=== PATIENT | male | born 1995 | race Caucasian/White ===

== ENCOUNTER 2024-06-13 18:34 | Emergency (ER) | payer MEDICAID, SELFPAY ==
[2024-06-13 18:39] VITALS: BP 140/85
--- NOTE | 2024-06-13 19:45 | ED.GENMED ---
History of Present Illness
General
Chief Complaint: Ear Problem
Source: patient
Exam Limitations: none
Time Seen by Provider: 06/13/24 19:08
Nursing documentation reviewed up to this point in time: agreed with
History of Present Illness
History of Present Illness:
29-year-old male presents to the emergency room for evaluation of left ear discomfort. Patient had an ear wick done to his left ear for excess cerumen. He says that some of the hot wax dripped into his ear and is causing him pain and some muffled
hearing�he says that symptoms were worse earlier in the day when it first happened and that they have generally improved but he still feels some discomfort. He denies any other complaints.
Review of Systems
Review of Systems
All Other Systems: ROS reviewed and negative except as documented in HPI and ROS
EENT: Reports other (Pain and muffled hearing left ear)
Phy Exam
Physical Exam
Physical Exam:
General: Well appearing and non-toxic
HEENT: protecting airway; right TM clear, canal clear; left ear canal small bit of wax abutting tympanic membrane, tympanic membrane is erythematous, bulging but no perforation noted
Neck: appears supple
CV: No evidence of cyanosis
Resp: No accessory muscle use
Abd: Non-distended
Extremities: No deformities
Neuro: Alert
Psych: Normal affect
Skin: Intact
Scores
Heart Failure Risk
Heart Failure Risk Score: Not Applicable
Heart Score for Chest Pain Patients
STEMI patient?: Not applicable
Withdrawal Assessment of Alcohol
Withdrawal Assessment Completed?: Not applicable
Course
Vital Signs
Initial and Last Documented VS:
Initial Vital Signs
Temp Pulse Resp BP Pulse Ox
36.6 C 63 20 140/85 98
06/13/24 18:39 06/13/24 18:39 06/13/24 18:39 06/13/24 18:39 06/13/24 18:39
Last Documented Vital Signs
Temp Pulse Resp BP Pulse Ox
36.6 C 63 20 140/85 98
06/13/24 18:39 06/13/24 18:39 06/13/24 18:39 06/13/24 18:39 06/13/24 18:39
MDM/Problems Addressed
Differential Diagnosis Includes:
[place] media, thermal burn
MDM/Problems Addressed:
29-year-old male presents with left ear discomfort and muffled hearing after hot wax from ear wick went into his ear. Vitals and exam as above. Suspect a thermal burn of the tympanic membrane. Advised NSAIDs, start on antibiotics, follow-up with
ENT. All questions answered.
*Pulse Oximetry
Patient hypoxic: no
*Critical Care Note
Total Time (30-74mins, 75-104mins- exclusive of procedures): Not Applicable
Data Reviewed
Source: patient
ED Attending Note
-
Portions of this chart may have been created with voice recognition software.� Occasional wrong word or��sound alike� substitutions may have occurred due to the inherent limitations of voice recognition software.
Discharge Plan
Departure
Patient Disposition: Home (Routine Discharge)
Date of Disposition: 06/13/24
Time of Disposition: 19:44
Patient with high blood pressure during this ER visit?: No
Discharge Problem:
Tympanic membrane inflammation
Instructions: Fluid in the Ear ED
Prescriptions:
New
cefdinir 300 mg capsule
300 mg PO BID Qty: 14 0RF
Referrals:
NONE,* [Family Provider] -
Jacques Stinson MD [Active] - Call in 1-3 days for appt (ENT)
Activity Restrictions/Additional Instructions:
Thank you for visiting the Emergency Department at [facility].
1. Please schedule a follow up appointment as directed. Call first thing tomorrow morning to make an appointment.
2. If indicated, please take your medications as instructed and indicated on discharge paperwork.
3. If any of your symptoms do not improve, or persist, or become more severe within 6-12 hours, please return to the emergency department for further care.
4. Please return to the emergency department if you develop a headache, neck pain/stiffness, fever greater than 100.4F, chest pain, shortness of breath, persistent nausea, vomiting, slurred speech, difficulty walking, numbness/tingling, weakness,
signs of infection or any other symptoms that are worrisome to you.
Please call [phone] if you have any questions.
Interventions
Interventions:
*General Assessment Last Done: 06/13/24 18:39
*Neglect/Abuse Screening Last Done: 06/13/24 18:42
*ED COVID-19 Vaccine History Last Done: 06/13/24 18:42
Discharge Date and Time
Print Language: LITHUANIAN
== END 2024-06-13 20:09 | disposition home or self-care (01) ==
LOC: EMR 18:34
PROVIDERS: EMERGENCY PHYSICIAN Emergency Medicine
DX: H73.22 Unspecified myringitis, left ear (principal)
CPT/HCPCS: 99283